=== PATIENT | male | born 1955 | race Caucasian/White ===

== ENCOUNTER 2018-04-22 10:13 | Inpatient (IN) ==
[2018-04-16 16:50] LABS: Appearance,Urine CLEAR; Bilirubin,Urine NEG (NEG); Color,Urine STRAW; Glucose,Urine (UA) NEGATIVE (NEG); Leukocyte Esterase,Urine NEG /uL (NEG); Protein,Urine NEG (NEG); Specific Gravity,Urine 1.017 (1.000-1.035); Urine Blood NEG mg/dL (<0.03); Urobilinogen,Urine NEG (NEG)
[2018-04-16 17:25] LABS: Basophils # (Auto) 0 K/mcL (0.0-0.3); Basophils % (Auto) 0.4 % (0.0-2.0); Eosinophils # (Auto) 0.2 K/mcL (0.0-0.7); Eosinophils % (Auto) 1.6 % (0.0-7.0); Granulocytes % (Auto) 68.6 % (38.0-78.0); Lymphocytes # (Auto) 1.9 K/mcL (1.5-4.8); Lymphocytes % (Auto) 19.6 % (15.5-49.0); Mean Cell Volume 90.1 fL (80.0-100.0); Mean Corpuscular HGB Conc 32.7 g/dL (31.0-36.0); Monocytes % (Auto) 9.8 % (1.0-12.0); Platelet Count 217 K/mcL (140-440); RBC 5.18 M/mcL (4.50-5.90); Red Cell Distribution Width 13.8 % (11.5-14.5)
[2018-04-16 18:41] LABS: Blood Urea Nitrogen 19 mg/dl (8-23)
[~2018-04-22 10:13] MED LIST: ACETAMINOPHEN 500 MG TABLET PO SCH; CELECOXIB 200 MG CAPSULE PO SCH; PREGABALIN 75 MG CAPSULE PO SCH; ceFAZolin 1 GM VIAL IV SCH; oxyCODONE 10 MG TAB.ER.12H PO SCH
[2018-04-22] MEDS ORDERED: ONDANSETRON 4 MG/2 ML VIAL IV ONE (14:25)
[2018-04-22] MEDS ORDERED: SUCCINYLCHOLINE 20 MG/ML ML IV ONE (14:25)
[2018-04-22] MEDS ORDERED: ROPIVACAINE HCL/PF 30 ML VIAL IJ ONE (14:25)
[2018-04-22] MEDS ORDERED: KETAMINE 100 MG/ML ML IV ONE (14:25)
[2018-04-22] MEDS ORDERED: PROPOFOL 200 MG/20 ML VIAL IV ONE (14:25)
[2018-04-22] MEDS ORDERED: ePHEDrine 50 MG/ML AMPUL IV ONE (14:25)
[2018-04-22] MEDS ORDERED: MIDAZOLAM 5 MG/5 ML VIAL IV ONE (14:25)
[2018-04-22] MEDS ORDERED: LIDOCAINE HCL/PF 100 MG/5 ML SYRINGE IV ONE (14:25)
[2018-04-22] MEDS ORDERED: fentaNYL 250 MCG/5 ML VIAL IV ONE (14:25)
[2018-04-22] MEDS ORDERED: TRANEXAMIC ACID 1,000 MG/10 ML VIAL IV ONE ×2 (14:25→15:38)
[2018-04-22] MEDS ORDERED: GLYCOPYRROLATE 0.2 MG/ML VIAL IV ONE (14:25)
[2018-04-22] MEDS ORDERED: PHENYLEPHRINE 10 MG/ML VIAL IV ONE (14:25)
[2018-04-22] MEDS ORDERED: DEXAMETHASONE 10 MG/ML VIAL IV ONE (14:25)
[2018-04-22] MEDS ORDERED: MEPERIDINE 25 MG/ML SYRINGE IV PRN (14:42)
[2018-04-22] MEDS ORDERED: METHOCARBAMOL 1,000 MG/10 ML VIAL IV PRN (14:42)
[2018-04-22] MEDS ORDERED: BENZOCAINE/MENTHOL 1 LOZENGE PO PRN ×2 (14:42→15:38)
[2018-04-22] MEDS ORDERED: NALOXONE HCL 0.4 MG/ML VIAL IV PRN (14:42)
[2018-04-22] MEDS ORDERED: PROMETHAZINE 25 MG/ML VIAL IV PRN (14:42)
[2018-04-22] MEDS ORDERED: LACTATED RINGERS 250 ML IV PRN (14:42)
[2018-04-22] MEDS ORDERED: FLUMAZENIL 0.1 MG/ML ML IV PRN (14:42)
[2018-04-22] MEDS ORDERED: fentaNYL 100 MCG/2 ML VIAL IV PRN (14:42)
[2018-04-22] MEDS ORDERED: HYDROmorphone 2 MG/ML VIAL IV PRN ×2 (14:42→15:38)
[2018-04-22] MEDS ORDERED: ONDANSETRON 4 MG/2 ML VIAL IV PRN ×2 (14:42→15:38)
[2018-04-22] MEDS ORDERED: IPRATROPIUM/ALBUTEROL 3 ML AMPUL.NEB NEB PRN (14:42)
[2018-04-22] MEDS ORDERED: LACTATED RINGERS 1,000 ML IV SCH (14:45)
[2018-04-22] MEDS ORDERED: GENTAMICIN SULFATE 800 MG/20 ML VIAL IR ONE (14:52)
--- NOTE | 2018-04-22 15:37 | Brief Operative Note ---
Date of procedure: 04/22/18 Pre-op diagnosis: Right shoulder RCA Post-op diagnosis: same Procedure: Right shoulder reverse tsa Grafts/Implants: Yes Anesthesia: PARAS Surgeon: Castillo Matt Staining Machine Operator: Cody Loco Estimated blood loss (cc): 85 Specimens Removed/Pathology: none sent Condition: stable Disposition: PACU
[2018-04-22] MEDS ORDERED: KETOROLAC 15 MG/ML VIAL IV PRN (15:38)
[2018-04-22] MEDS ORDERED: FLEETS ADULT ENEMA PR PRN (15:38)
[2018-04-22] MEDS ORDERED: MAGNESIUM HYDROXIDE 30 ML ORAL.SUSP PO PRN (15:38)
[2018-04-22] MEDS ORDERED: POLYETHYLENE GLYCOL 3350 17 GM PACKET PO PRN (15:38)
[2018-04-22] MEDS ORDERED: ACETAMINOPHEN 325 MG TABLET PO PRN (15:38)
[2018-04-22] MEDS ORDERED: TEMAZEPAM 15 MG CAPSULE PO PRN (15:38)
[2018-04-22] MEDS ORDERED: BISACODYL 10 MG SUPP.RECT PR PRN (15:38)
--- NOTE | 2018-04-22 16:11 | Operative Note ---
DATE OF OPERATION: 04/22/2018 PREOPERATIVE DIAGNOSIS: Right shoulder massive rotator cuff tear with degenerative arthritis. POSTOPERATIVE DIAGNOSIS: Right shoulder massive rotator cuff tear with degenerative arthritis. PROCEDURE: Right reverse total shoulder. SURGEON: Castillo Matt M.D. BULLET CASTING OPERATOR: Cody Loco PA-C. ANESTHESIA: General LMA anesthesia by Darnell Nelson CRNA. ESTIMATED BLOOD LOSS: About 50 to 85 mL. INJECTABLES: Preop antibiotics were given and tranexamic acid given. IMPLANTS: Pierre reverse total shoulder with a Metaglene, four screws per nurse's note. A 40 mm glenosphere measuring 2 mm of offset and 2 mm of the eccentricity, a 12 mm cementless stem with 4 x 8 mm poly humeral liner. COMPLICATIONS: None. DESCRIPTION OF PROCEDURE: The patient was brought to the operating room and put to sleep with general LMA anesthesia. Once asleep, the patient had the right arm confirmed as the operative site after a time out by initials, consent form, and x-rays. We confirmed that there were preop antibiotics and tranexamic acid given. Ioban was placed over the skin after being sterilely prepped and draped and sat in a beach chair position. The patient was leaned back to a 45 degree inclination to raise his knee equal with his heart. Once this was all done, we then made a 4-inch incision from the coracoid to the insertion of the deltoid tendon anterior edge. We identified the deltopectoral interval which was retracted laterally, preserving the cephalic vein with the deltoid laterally. The conjoined tendon was retracted medially and then released the subscap and capsule anteriorly. We tagged the anterior capsule and then subluxed the humeral head forward, releasing the capsule at this point on the inferior humeral neck up to about the 5 o'clock position. Once done, we then made our cut of the humeral head itself at the anatomical neck region. Once this was done, we noted that there was a massive rotator cuff tear from the supraspinatus and infraspinatus. The teres minor appeared to still be intact. The biceps tendon had been long dislocated or ruptured. We placed a protective guard on the humeral head after cutting the humeral head and removing the bony fragment. The guide was removed from the arm. Once this was done, we subluxed the humeral head posteriorly. Retractors were placed and we removed the labrum circumferentially. Also, a 360 degree capsular release was performed. We placed a pin centrally in the glenoid at 10 degrees of inclination. We reamed up to the size of 40, placing the Metaglene and a 36 mm center screw with a 36, 28 and 20 peripheral screws. A 40 mm glenosphere was placed using 2 mm of offset, 2 mm of eccentricity. This was tapped into place. Once done, we then irrigated thoroughly and then prepared the humerus. The humerus was broached up to a size 12. We trialed the size 12 with a standard poly. This was the appropriate size. We irrigated thoroughly and then placed a small amount of cement distally. A cementless stem size 12 was placed. A standard thickness poly was placed and tapped into place. This was reduced, achieving full motion and appropriate tension both on conjoined tendon and deltoid. We irrigated thoroughly and then closed the interval with #1 Stratafix making sure that the cephalic vein was intact and not bleeding. Once done, we then closed the skin with Stratafix and adhesive closure. Sterile bandage was applied. A DonJoy sling was fitted and given to the patient. MALICK:[email or web address] Job ID: [id number] Doc ID: [id number] Castillo Matt MD
[2018-04-22] MEDS: 0.45 % SODIUM CHLORIDE 1,000 ML IV SCH (16:34)
--- NOTE | 2018-04-22 16:35 | XRay Report ---
CLINICAL INFORMATION: Postsurgical follow-up TECHNIQUE: AP and Y-view of the right shoulder COMPARISON: Preoperative MRI scan dated 12/29/2017 FINDINGS: Status post right reverse shoulder arthroplasty. Alignment is anatomic. IMPRESSION: Reverse shoulder arthroplasty Interpreted and Authenticated by: Jean Schaefer 04/22/18
[2018-04-22] MEDS: DOCUSATE SODIUM 100 MG CAPSULE PO SCH (19:58)
[2018-04-22] MEDS: HYDROcodone/APAP 10/325MG TABLET PO PRN (19:58)
[2018-04-22] MEDS: 0.9 % SODIUM CHLORIDE 10 ML SYRINGE IV SCH (20:00)
[2018-04-22] MEDS ORDERED: SENNOSIDES 1 TABLET PO SCH (21:00)
[2018-04-22] MEDS: ceFAZolin 1 GM VIAL IV SCH (23:14)
[2018-04-23] MEDS: 0.45 % SODIUM CHLORIDE 1,000 ML IV SCH (01:07)
[2018-04-23] MEDS: HYDROcodone/APAP 10/325MG TABLET PO PRN ×2 (03:51→09:10)
[2018-04-23] MEDS: ceFAZolin 1 GM VIAL IV SCH (05:37)
[2018-04-23] MEDS: 0.9 % SODIUM CHLORIDE 10 ML SYRINGE IV SCH (05:37)
--- NOTE | 2018-04-23 08:00 | Orthopedic Progress Note ---
Subjective Patient information: Note initiated : 04/23/18 at 7:59 am Service Date, if different from initiated Date: [] Patient: Federico Han 62 y/o M admitted on 04/22/18 for Right Reverse Total Shoulder Arthroplasty with. Chief Complaint: [Pt is stable this morning on post operative day 1 without any significant concerns or complaints. Patients vital signs have remained stable. Patients dressing is dry and is grossly intact from a neuro vascular and motor standpoint. Patients 10 point ROS is otherwise negative. ] Objective Vital signs: Vital Signs Temp Pulse Resp BP Pulse Ox 04/23/18 04:00 98 F 74 16 113/66 91 04/22/18 23:54 98.7 F 84 20 122/69 91 04/22/18 19:50 98.6 F 88 14 126/75 90 04/22/18 19:41 76 14 94 04/22/18 17:54 133/74 04/22/18 16:20 97.0 F 76 14 131/76 94 04/22/18 16:05 78 13 127/86 100 04/22/18 16:00 79 15 119/66 100 04/22/18 15:55 97.3 F 65 12 115/66 98 04/22/18 10:34 97.5 F 61 16 116/73 93 04/22/18 10:13 18 Intake and Output 04/22/18 04/23/18 04/23/18 21:59 05:59 13:59 Intake Total 1640 Balance 1640 Intake: Oral 240 IV - Manual Only 1400 Other: Meal Dinner Percent of Meal Consumed 100% Feeding Ability Independent # Voids 1 1 Weight 241 lb Intake & Output: Intake & Output 04/22/18 04/23/18 04/23/18 21:59 05:59 13:59 Intake Total 1640 Balance 1640 Weight 241 lb Intake: Oral 240 IV - Manual Only 1400 Other: Meal Dinner Percent of Meal Consumed 100% Feeding Ability Independent # Voids 1 1 Incision: Yes healing Dressing: Yes clean Weight bearing status: full Neurological exam IM: Yes motor sensory intact, Yes neurovascular intact Extremities exam IM: Yes neurovascular intact - Labs CBC & BMP: 04/16/18 15:30 04/16/18 15:30 Labs: 04/16/18 15:30 Hgb 15.3 Hct 46.7 Assessment and Plan (1) History of reverse total replacement of right shoulder joint The patient has been educated regarding dressing care, Physical Therapy recomme ndations, home exercises, restrictions, and follow up appointments. The patient has had all necessary DME prescribed. The patient has remained relatively stable during their hospital course. Leave Dermabond patch intact until followup Status: Acute
--- NOTE | 2018-04-23 08:02 | Discharge Summary ---
Ortho Discharge - TSA - Patient Instructions Diet: Regular Diet Activity: activity as tolerated, weight bearing as tolerated Total Shoulder Protocol: Leave immobilizer in place except for bathing and ROM. Abduction pillow. Continue to wear sling until seen by physician. Codman Pendulum : These exercises use momentum produced by your body to move your shoulder joint. Bend your knees and shift your weight to your front leg, then back, allowing your arm to swing in the same directions. Using the same technique, alternately shift your weight between your right and left legs, allowing your arm to swing from side to side. These exercises are also performed in counterclockwise and clockwise circular motions. Typically these exercises are performed several times per day, for a set number repetitions or minutes, such as 20 times in a row or 5 minutes at a time. Dressing Care: May shower in 2 days - Problem Maintenance (1) History of reverse total replacement of right shoulder joint Status: Acute - Follow Up Plan Follow Up Appointments: Cody Loco PA-C [Physician Medical Technologist Clinical] - 05/07/18 1:40 pm Disposition: Home, Self-Care Prognosis: Good Rehab Potential: Good I certify that the patient requires SNF services: No Overall status at discharge: patient is progressing back to baseline - Orders For Discharge Prescriptions: Docusate Sodium [Colace] 100 mg PO BID #60 capsule HYDROcodone/APAP 10/325MG [[place] 10-325Mg] 1 - 2 tab PO Q4HP PRN #75 tab PRN Reason: Pain Level 3-6
[2018-04-23] MEDS: DOCUSATE SODIUM 100 MG CAPSULE PO SCH (09:10)
== END 2018-04-23 09:55 | disposition home or self-care (01) | DRG 483 ==
LOC: MEDSUR 10:13
PROVIDERS: ADMIT Orthopaedic Surgery; ATTEND Orthopaedic Surgery